=== PATIENT | male | born 2000 | race Caucasian/White ===

== ENCOUNTER 2023-08-05 16:55 | Observation (INO) ==
--- NOTE | 2023-08-05 17:08 | ED Triage Note ---
Date of Service August 05, 2023 Provider in Triage Author: Candace Betts History of Present Illness This patient was briefly evaluated while in triage. An abbreviated physical exam was performed. This patient is a 23-year-old Male who presents to the ED for evaluation of syncope. He states that he passed out in his bed. He states that he started vomiting while he was in bed then passed out and now can't see. Also having a lot of SOB and chest pain. Also has a lot of lower back pain. No previous similar symptoms. No recent injury or trauma. Was in [place] last weekend - flew down and back. Denies tobacco use or vaping. Physical Exam GENERAL: The patient appears in pain and nauseous and is holding his hands over his eyes saying that he is having trouble seeing the symptoms. Otherwise non- toxic and in no acute distress. HEENT: PERRLA. EOMI. No obvious scleral icterus. HEART: Regular rate and rhythm. LUNGS: Clear to auscultation. No accessory muscle use. ABDOMEN: Soft, diffusely tender to palpation. NEURO: Alert and oriented. No obvious neurological deficits on quick neuro exam. Initial orders for labs and / or imaging were placed and patient was placed in the waiting area until a bed is available. Please see further documentation for the full ED course. MDM / Impression Impression Impression: Vasovagal syncope, Dizziness, Leukocytosis Impression: Leukocytosis Qualifiers: Leukocytosis type: unspecified Qualified Code(s): D72.829 - Elevated white blood cell count, unspecified
[2023-08-05 17:43] LABS: Basophils # (auto) 0.03 K/uL (0.00-0.20); Basophils % (auto) 0.2 %; Eosinophils # (auto) 0.04 K/uL (0.00-0.50); Eosinophils % (auto) 0.3 %; Hematocrit (blood only) 46.5 % (42.0-52.0); Hemoglobin 16.8 g/dl (14.0-18.0); Immature Granulocytes # (auto) 0.06 K/uL (0.01-0.20); Immature Granulocytes % (auto) 0.4 %; Lymphocytes # (auto) 1.22 K/uL (1.20-3.40); Lymphocytes % (auto) 7.9 %; Mean Corpuscular Hemoglobin 29.4 pg (25.0-34.0); Mean Corpuscular Hgb Conc 36.1 g/dL (32.0-36.0); Mean Corpuscular Volume 81.3 fL (80.0-100.0); Monocytes # (auto) 0.54 K/uL (0.11-0.59); Monocytes % (auto) 3.5 %; Neutrophils # (auto) 13.61 K/uL (1.40-6.50); Neutrophils % (auto) 87.7 %; Platelet Count 266 K/uL (130-400); Red Blood Count 5.72 M/uL (4.70-6.10)
[2023-08-05] MEDS: OPTIRAY 320 125ml IV ONE (17:47)
[2023-08-05 17:57] LABS: Albumin Globulin Ratio 1.6 (0.9-2); Albumin Level 5.2 gm/dl (3.4-5.0); BUN Creatinine Ratio 13.9 (10-20); Bilirubin,Total 1.1 mg/dl (0.2-1.0); Calcium 9.6 mg/dl (8.6-10.3); Creatinine Clr Calc Pharmacy 94.4 ml/min; Est GFR (African American) 103.4 ml/min; Est GFR (Non-African American) 89.2 ml/min; Globulin 3.2 gm/dl (2.5-4.0); Magnesium 1.8 mg/dl (1.7-2.4); Potassium 4.1 mmol/L (3.5-5.1); Total Protein 8.4 gm/dl (6.0-8.3)
--- NOTE | 2023-08-05 18:01 | CT Scan Report ---
UNENHANCED CT OF THE BRAIN; CT ANGIOGRAM OF THE BRAIN; CT ANGIOGRAM OF THE NECK CLINICAL HISTORY: Headache. Vomiting. Syncope. COMPARISON STUDY: No priors. TECHNIQUE: Unenhanced axial CT scan of the brain is performed. Subsequently, following the IV adminis tration of 115 of Optiray 320, CT angiogram of the head and neck was performed from the aortic arch t o the vertex. Images are reviewed in the axial, sagittal, and coronal planes. 3-D MIPS images are cre ated and assessed. IV contrast was administered without complication. All measurements were calculate d based on NASCET criteria. A dose lowering technique was utilized adhering to the principles of ALA RA. CT DOSE: 3240.41 mGy.cm FINDINGS: Brain parenchyma: The brain parenchyma is normal in appearance. There is no hemorrhage, mass effect, or evidence of acute territorial ischemia by CT criteria. There is no evidence of enhancing mass lesi on on the angiogram phase images. The ventricles, sulci, and cisterns are normal in configuration. Gr ay-white matter differentiation is preserved. No extra-axial fluid collection is seen. Thoracic aorta: Visualized portions of the thoracic aorta are normal in caliber. The aortic arch demo nstrates standard 3-vessel anatomy. Right carotid arterial system: The right common carotid artery is widely patent, as are the right int ernal and external carotid arteries. Left carotid arterial system: The left common carotid artery is widely patent, as are the left information technology intern al and external carotid arteries. Vertebral arteries: The vertebral arteries are widely patent bilaterally and codominant. Subclavian arteries: Widely patent bilaterally. Intracranial vasculature: The internal carotid arteries are patent at the skull base, as are the ante rior and middle cerebral arteries bilaterally. The vertebrobasilar system and posterior cerebral dina rani are widely patent. The vertebral arteries are codominant. There is no aneurysm, high-grade steno sis, or focal vessel cut off seen throughout the intracranial circulation. Jugular veins: Patent bilaterally. Dural sinuses: Patent. Lung apices: Partially visualized upper lobe lung parenchyma appears clear. Soft tissues: The visualized pharyngeal soft tissues are normal in appearance noting angiographic pha se technique. The oropharyngeal airway appears widely patent. The salivary and thyroid glands are nor mal in appearance. No cervical lymphadenopathy is seen. Skeletal structures: The calvarium appears intact. The cervical spine is within normal limits. Orbits: The bony orbits are intact. Orbital contents are normal as visualized. Sinuses and mastoids: There is a 2.7 cm retention cyst in the right maxillary antrum. The remaining p aranasal sinuses are clear. The mastoid air cells are well pneumatized. IMPRESSION: 1. No acute intracranial abnormality. 2. Unremarkable CT angiogram of the brain. 3. Unremarkable CT angiogram of the neck. ACT 112: Negative or not required by law. Electronically signed by: Oumar Howe M.D. 08/05/2023 5:59 PM
[2023-08-05 18:02] LABS: Troponin I High Sensitivity 2.5 pg/ml (0-20)
[2023-08-05 18:10] LABS: Partial Thromboplastin Ratio 0.9; Partial Thromboplastin Time 24 Seconds (21-31); Prothrombin Time 11.1 Seconds (9.0-12.0)
[2023-08-05 18:11] LABS: Thyroid Stimulating Hormone 2.098 uIu/ml (0.300-4.500)
--- NOTE | 2023-08-05 19:12 | CT Scan Report ---
CT ANGIOGRAM OF THE CHEST; CT SCAN OF THE ABDOMEN AND PELVIS WITH IV CONTRAST CLINICAL HISTORY: Syncope. Vomiting. Visual changes. Weakness. COMPARISON STUDY: No priors. TECHNIQUE: Following the IV administration of 115 of Optiray 320, CT angiogram of the chest is perfor med from the upper abdomen to the thoracic inlet utilizing the pulmonary embolus protocol. Images are reviewed in the axial, sagittal, coronal planes. 3-D MIPS images are created and assessed. Subsequen tly, CT scan of the abdomen and pelvis was performed from the lung bases to the proximal femora. Imag es are reviewed in the axial, sagittal, and coronal planes. IV contrast was administered without comp lication. A dose lowering technique was utilized adhering to the principles of ALARA. FINDINGS: CHEST: Thyroid: Imaged portions of the thyroid gland are normal in size and attenuation. Thoracic aorta: The thoracic aorta is normal in caliber and demonstrates standard 3-vessel arch anato my. No dissection is seen. Pulmonary vasculature: The pulmonary trunk is normal in caliber. There are no filling defects identif ied in the main, lobar, or segmental pulmonary arteries to indicate pulmonary embolus. Heart: The heart is normal in size and without pericardial effusion. Lungs and pleural spaces: There is no airspace consolidation, pleural effusion, or pneumothorax. The trachea and central airways are clear. Mediastinum: There is no mediastinal lymphadenopathy. Fang: Clear. Axillae: There is no axillary lymphadenopathy. Bony thorax: No lytic or blastic lesions are identified. ABDOMEN AND PELVIS: Liver: The contrast-enhanced liver is normal in size, contour, and attenuation. There is no intrahepa tic or ductal dilatation. The hepatic veins and portal veins are patent. Gallbladder: Unremarkable. Spleen: Normal in size and attenuation. Pancreas: Unremarkable. Adrenal glands: Unremarkable. 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 The contrast enhanced renal moieties are normal i n size and without hydronephrosis. The renal moieties enhance symmetrically. A 4 mm nonobstructing ca lculus is seen on the right. Abdominal vasculature: The abdominal aorta is normal in course and caliber. Bowel: There is no bowel obstruction. The appendix is well-visualized and normal. Peritoneum: There is no intraperitoneal free air or abdominal ascites. Lymphadenopathy: None. Pelvic viscera: The bladder wall appears thickened. The prostate and seminal vesicles are normal as v isualized. There is trace free fluid in the pelvis. Skeletal structures: No lytic or blastic lesions are seen. IMPRESSION: 1. There is no evidence of pulmonary embolus in the main, lobar, or segmental pulmonary arteries. 2. The lungs are clear. 3. Trace free fluid in the pelvis is a nonspecific but abnormal finding. This may be reactive. Correl ate clinically. 4. The bladder wall appears thickened. Correlate with clinical findings and urinalysis. 5. 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 6. Right-sided nephrolithiasis. 7. Additional findings as above. ACT 112: Negative or not required by law. Electronically signed by: Oumar Howe M.D. 08/05/2023 7:11 PM
--- NOTE | 2023-08-05 19:14 | Emergency Department Note ---
Impression & Plan Vasovagal syncope, Dizziness, Leukocytosis ED Provider Note NAME: DEBBIE JADE AGE: 23 SEX: M : 2000 ARRIVES VIA: Walk-In INFORMANT: Patient ED PROVIDER(S): Buck Gonzalez DO CHIEF COMPLAINT: N/V/D and syncope HPI: Patient is a 23-year-old male who presents to the ER for nausea, vomiting, and diarrhea which started around 3:00 today. He vomited and got very lightheaded and diaphoretic and passed out while lying down. He notes he feels very dizzy. He does have some spasms in his back bilaterally. No trauma. No chest pain or shortness of breath. No dysuria, urgency, or frequency. No other exacerbating or remitting factors. Patient denies diabetes, hypertension, hyperlipidemia, CAD, history of sudden at a young age, and smoking. Patient notes that upon arrival he was having difficulty seeing as he was very dizzy. ADDITIONAL HISTORY OBTAINED: Per HPI Chronic Medical/Social Conditions Affecting Care: Per HPI PAST MEDICAL HISTORY:See Below PAST SURGICAL HISTORY:See Below FAMILY HISTORY:See Below SOCIAL HISTORY:See Below HOME MEDICATIONS:See Below ALLERGIES:See Below VITALS:See Below PHYSICAL EXAMINATION: GENERAL: Sitting up in bed, alert, uncomfortable, disheveled EYE EXAM: normal conjunctiva. PERRL and EOM's grossly intact. OROPHARYNX: Dry mucous membranes NECK: supple, no nuchal rigidity, no adenopathy, non-tender LUNGS: Clear to auscultation. Normal chest wall mechanics HEART: no murmurs, S1 normal and S2 normal ABDOMEN: abdomen soft, non-tender, normo-active bowel sounds, no masses, no rebound or guarding. BACK: Back is symmetrical on inspection and there is no deformity, no midline tenderness, no CVA tenderness. UPPER EXTREMITIES: upper extremities are grossly normal. LOWER EXTREMITIES: No pitting edema. NEURO EXAM: Normal sensorium, cranial nerves II-XII intact, normal speech, no weakness of arms, no weakness of legs. No drift. Finger to nose intact. Gross sensation intact. MEDICAL DECISION MAKING: Patient is a 23-year-old male who presents ER for above-stated complaint. IV was established blood work was obtained. Labs show leukocytosis of 15,000. No significant anemia. INR unremarkable. BMP on LFTs bilirubin was unremarkable. Troponin was negative. TSH was unremarkable. Patient was given 2 L of IV fluids followed by Plasma-Lyte, Zofran, Toradol, Reglan and did feel significantly better. While in the ER he did bradycardia down and became significant hypotensive in the 60s and almost passed out. This was prior to being placed on the monitor due to the protracted wait. It was discussed with the hospitalist this morning for further evaluation management treatment. EKG was unremarkable. Additional history obtained from nursing triage note that he walked into the wall as he was so dizzy and was having blurry vision. Consults/Care Managements Discussions: Per [facility] Triage Nursing notes reviewed. Limited review of prior medical records performed Vital Signs: reviewed and remarkable for tachy Differential diagnosis: Differential diagnosis includes etiologies such as vasovagal event, infection, hypoglycemia, electrolyte abnormalities, cardiac sources, intracerebral event, toxicologic, neurologic, as well as others were entertained. ER treatment provided: See below Diagnostics interpreted by me include EKG and cardiac monitoring as listed below: -Cardiac Monitoring: An order was placed for continuous cardiac monitoring. The monitor shows a rate of 90 with sinus rhythm. -ECG: Junctional rate 88 Right axis No PVCs QTc 433 Sinus rhythm rate of 88 Normal axis No PVCs QTc 438 -Laboratory studies:Interpreted by me as stated above in [facility] and shown below. Imaging studies: Xrays: As interpreted by me:none CTs show: CT of the chest per my preliminary interpretation showed no obvious large pneumothorax CT of the head, angio of the head and neck as well as angio of the chest was unremarkable Procedures:none Critical Care: None Past Med/Surg History Social History Smoking Status: Never smoker Preferred Language: [place] Feels Safe at Home: Yes Allergies Allergies Allergy/AdvReac Type Severity Reaction Status Date / Time codeine AdvReac Intermediate MODERATE Verified 08/05/23 20:59 GI UPSET Home Meds Home Medications Medication Instructions Recorded Confirmed dexamethasone 0.5 mg/5 mL oral 0.25 mg PO DIRECTED PRN MOUTH 08/05/23 08/05/23 elixir ULCERS Results & Data (ED) Vital Signs Vital Signs - 24 hr 08/05/23 17:05 08/05/23 20:15 08/05/23 20:32 Temperature 36.3 C L Temperature Source Temporal Artery Scan Pulse Rate 104 H 97 H Pulse Rate [Finger] 110 H Respiratory Rate 20 16 Respiratory Effort / Characteristics Non-Labored Respiratory Depth Normal Blood Pressure 130/65 Blood Pressure [Left Arm] 67/39 L Blood Pressure Mean 86 Blood Pressure Mean [Left Arm] 48 Blood Pressure Position [Left Arm] Lying Pulse Oximetry 100 95 Oxygen Delivery Method Room Air Sepsis Recent Fever Within 48 Hours No Sepsis New/Unexplained Change in Mental Status N/A Sepsis Action Taken by Nursing No Action Required 08/05/23 21:00 08/05/23 21:12 08/05/23 23:40 Temperature Temperature Source Pulse Rate Pulse Rate [Finger] 85 95 H 86 Respiratory Rate 18 18 18 Respiratory Effort / Characteristics Respiratory Depth Blood Pressure Blood Pressure [Left Arm] 121/71 121/71 117/58 L Blood Pressure Mean Blood Pressure Mean [Left Arm] 87 87 77 Blood Pressure Position [Left Arm] Pulse Oximetry 99 100 99 Oxygen Delivery Method Room Air Room Air Room Air Sepsis Recent Fever Within 48 Hours Sepsis New/Unexplained Change in Mental Status Sepsis Action Taken by Nursing Laboratory Data 08/05/23 17:22 08/05/23 17:22 Lab Results 08/05/23 Range/Units 17:22 WBC 15.50 H (4.8-10.8) K/ul RBC 5.72 (4.70-6.10) M/uL Hgb 16.8 (14.0-18.0) g/dl Hct 46.5 (42.0-52.0) % MCV 81.3 (80.0-100.0) fL MCH 29.4 (25.0-34.0) pg MCHC 36.1 H (32.0-36.0) g/dL RDW Std Deviation 35.0 L (36.4-46.3) fL RDW Coeff of Mari 12.0 (11.5-14.5) % Plt Count 266 (130-400) K/uL MPV 10.0 (9.4-12.4) fL Immature Gran % (Auto) 0.4 % Neut % (Auto) 87.7 % Lymph % (Auto) 7.9 % Kay % (Auto) 3.5 % Eos % (Auto) 0.3 % Baso % (Auto) 0.2 % Neut # (Auto) 13.61 H (1.40-6.50) K/uL Lymph # (Auto) 1.22 (1.20-3.40) K/uL Kay # (Auto) 0.54 (0.11-0.59) K/uL Eos # (Auto) 0.04 (0.00-0.50) K/uL Baso # (Auto) 0.03 (0.00-0.20) K/uL Immature Gran # (Auto) 0.06 (0.01-0.20) K/uL PT 11.1 (9.0-12.0) Seconds INR 1.0 (0.9-1.1) APTT 24 (21-31) Seconds PTT Ratio 0.9 Sodium 139 (136-145) mmol/L Potassium 4.1 (3.5-5.1) mmol/L Chloride 105 (98-107) mmol/L Carbon Dioxide 22 (21-32) mmol/L Anion Gap 12 H (3-11) BUN 16 (6-23) mg/dl Creatinine 1.15 (0.6-1.4) mg/dl Est Cr Clr Drug Dosing 94.4 ml/min Est GFR ( Amer) 103.4 ml/min Est GFR (Non-Af Amer) 89.2 ml/min BUN/Creatinine Ratio 13.9 (10-20) Glucose 131 H (70-99(Fasting)) mg/dl Calcium 9.6 (8.6-10.3) mg/dl Magnesium 1.8 (1.7-2.4) mg/dl Total Bilirubin 1.1 H (0.2-1.0) mg/dl AST 23 (13-39) U/L ALT 12 (7-52) U/L Alkaline Phosphatase 94 (34-104) U/L Troponin I High Sens 2.5 (0-20) pg/ml Total Protein 8.4 H (6.0-8.3) gm/dl Albumin 5.2 H (3.4-5.0) gm/dl Globulin 3.2 (2.5-4.0) gm/dl Albumin/Globulin Ratio 1.6 (0.9-2) TSH 2.098 (0.300-4.500) uIu/ml Administered Medications Discontinued Medications Sodium Chloride (Nss) 1,000 mls @ 999 mls/hr IV .Q1H1M ONE Stop: 08/05/23 18:08 Last Infusion: 08/05/23 22:28 Dose: Infused Documented By: Admin: 08/05/23 21:14 Dose: 999 mls/hr Documented By: STEPHANIE Sodium Chloride (Nss) 1,000 mls @ 999 mls/hr IV .Q1H1M ANGEL Stop: 08/05/23 21:12 Last Infusion: 08/05/23 21:13 Dose: Infused Documented By: Admin: 08/05/23 20:59 Dose: 999 mls/hr Documented By: STEPHANIE Parenteral Electrolytes (Plasma-Lyte A Ph 7.4) 2,000 mls @ 999 mls/hr IV .Q2H1M ONE Stop: 08/05/23 23:15 Last Admin: 08/05/23 22:42 Dose: 999 mls/hr Documented By: STEPHANIE Ioversol (Optiray 320 125ml) 115 ml IV ONCE ONE Stop: 08/05/23 17:47 Last Admin: 08/05/23 17:47 Dose: 115 ml Documented By: MITCHEL Ketorolac Tromethamine (Ketorolac Tromethamine 15 Mg/Ml Vial) 15 mg IV NOW ONE Stop: 08/05/23 19:12 Last Admin: 08/05/23 20:59 Dose: 15 mg Documented By: STEPHANIE Metoclopramide HCl (Metoclopramide Hcl Inj 5 Mg/Ml 2 Ml Vial) 10 mg IV NOW STA Stop: 08/05/23 19:12 Last Admin: 08/05/23 21:02 Dose: Not Given Documented By: STEPHANIE Ondansetron HCl (Ondansetron Inj 2 Mg/Ml 2 Ml Vial) 4 mg IV NOW STA Stop: 08/05/23 17:09 Last Admin: 08/05/23 21:14 Dose: 4 mg Documented By: STEPHANIE Ondansetron HCl (Ondansetron Inj 2 Mg/Ml 2 Ml Vial) Confirm Administered Dose 4 mg .ROUTE .STK-MED ONE Stop: 08/05/23 21:10 Last Admin: 08/05/23 21:14 Dose: Not Given Documented By: STEPHANIE Imaging Data Radiologist's Impression: Abdomen/Pelvis CT 08/05/23 17:08 CT ANGIOGRAM OF THE CHEST; CT SCAN OF THE ABDOMEN AND PELVIS WITH IV CONTRAST CLINICAL HISTORY: Syncope. Vomiting. Visual changes. Weakness. COMPARISON STUDY: No priors. TECHNIQUE: Following the IV administration of 115 of Optiray 320, CT angiogram of the chest is performed from the upper abdomen to the thoracic inlet utilizing the pulmonary embolus protocol. Images are reviewed in the axial, sagittal, coronal planes. 3-D MIPS images are created and assessed. Subsequently, CT scan of the abdomen and pelvis was performed from the lung bases to the proximal femora. Images are reviewed in the axial, sagittal, and coronal planes. IV contrast was administered without complication. A dose lowering technique was utilized adhering to the principles of ALARA. FINDINGS: CHEST: Thyroid: Imaged portions of the thyroid gland are normal in size and attenuation. Thoracic aorta: The thoracic aorta is normal in caliber and demonstrates standard 3-vessel arch anatomy. No dissection is seen. Pulmonary vasculature: The pulmonary trunk is normal in caliber. There are no filling defects identified in the main, lobar, or segmental pulmonary arteries to indicate pulmonary embolus. Heart: The heart is normal in size and without pericardial effusion. Lungs and pleural spaces: There is no airspace consolidation, pleural effusion, or pneumothorax. The trachea and central airways are clear. Mediastinum: There is no mediastinal lymphadenopathy. Fang: Clear. Axillae: There is no axillary lymphadenopathy. Bony thorax: No lytic or blastic lesions are identified. ABDOMEN AND PELVIS: Liver: The contrast-enhanced liver is normal in size, contour, and attenuation. There is no intrahepatic or ductal dilatation. The hepatic veins and portal veins are patent. Gallbladder: Unremarkable. Spleen: Normal in size and attenuation. Pancreas: Unremarkable. Adrenal glands: Unremarkable. 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 The contrast enhanced renal moieties are normal in size and without hydronephrosis. The renal moieties enhance symmetrically. A 4 mm nonobstructing calculus is seen on the right. Abdominal vasculature: The abdominal aorta is normal in course and caliber. Bowel: There is no bowel obstruction. The appendix is well-visualized and normal. Peritoneum: There is no intraperitoneal free air or abdominal ascites. Lymphadenopathy: None. Pelvic viscera: The bladder wall appears thickened. The prostate and seminal vesicles are normal as visualized. There is trace free fluid in the pelvis. Skeletal structures: No lytic or blastic lesions are seen. IMPRESSION: 1. There is no evidence of pulmonary embolus in the main, lobar, or segmental pulmonary arteries. 2. The lungs are clear. 3. Trace free fluid in the pelvis is a nonspecific but abnormal finding. This may be reactive. Correlate clinically. 4. The bladder wall appears thickened. Correlate with clinical findings and urinalysis. 5. 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 6. Right-sided nephrolithiasis. 7. Additional findings as above. ACT 112: Negative or not required by law. Electronically signed by: Oumar Howe M.D. 08/05/2023 7:11 PM Chest CTA 08/05/23 17:08 CT ANGIOGRAM OF THE CHEST; CT SCAN OF THE ABDOMEN AND PELVIS WITH IV CONTRAST CLINICAL HISTORY: Syncope. Vomiting. Visual changes. Weakness. COMPARISON STUDY: No priors. TECHNIQUE: Following the IV administration of 115 of Optiray 320, CT angiogram of the chest is performed from the upper abdomen to the thoracic inlet utilizing the pulmonary embolus protocol. Images are reviewed in the axial, sagittal, coronal planes. 3-D MIPS images are created and assessed. Subsequently, CT scan of the abdomen and pelvis was performed from the lung bases to the proximal femora. Images are reviewed in the axial, sagittal, and coronal planes. IV contrast was administered without complication. A dose lowering technique was utilized adhering to the principles of ALARA. FINDINGS: CHEST: Thyroid: Imaged portions of the thyroid gland are normal in size and attenuation. Thoracic aorta: The thoracic aorta is normal in caliber and demonstrates standard 3-vessel arch anatomy. No dissection is seen. Pulmonary vasculature: The pulmonary trunk is normal in caliber. There are no filling defects identified in the main, lobar, or segmental pulmonary arteries to indicate pulmonary embolus. Heart: The heart is normal in size and without pericardial effusion. Lungs and pleural spaces: There is no airspace consolidation, pleural effusion, or pneumothorax. The trachea and central airways are clear. Mediastinum: There is no mediastinal lymphadenopathy. Fang: Clear. Axillae: There is no axillary lymphadenopathy. Bony thorax: No lytic or blastic lesions are identified. ABDOMEN AND PELVIS: Liver: The contrast-enhanced liver is normal in size, contour, and attenuation. There is no intrahepatic or ductal dilatation. The hepatic veins and portal veins are patent. Gallbladder: Unremarkable. Spleen: Normal in size and attenuation. Pancreas: Unremarkable. Adrenal glands: Unremarkable. 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 The contrast enhanced renal moieties are normal in size and without hydronephrosis. The renal moieties enhance symmetrically. A 4 mm nonobstructing calculus is seen on the right. Abdominal vasculature: The abdominal aorta is normal in course and caliber. Bowel: There is no bowel obstruction. The appendix is well-visualized and normal. Peritoneum: There is no intraperitoneal free air or abdominal ascites. Lymphadenopathy: None. Pelvic viscera: The bladder wall appears thickened. The prostate and seminal vesicles are normal as visualized. There is trace free fluid in the pelvis. Skeletal structures: No lytic or blastic lesions are seen. IMPRESSION: 1. There is no evidence of pulmonary embolus in the main, lobar, or segmental pulmonary arteries. 2. The lungs are clear. 3. Trace free fluid in the pelvis is a nonspecific but abnormal finding. This may be reactive. Correlate clinically. 4. The bladder wall appears thickened. Correlate with clinical findings and urinalysis. 5. 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 6. Right-sided nephrolithiasis. 7. Additional findings as above. ACT 112: Negative or not required by law. Electronically signed by: Oumar Howe M.D. 08/05/2023 7:[address] 08/05/23 17:[address] OF THE BRAIN; CT ANGIOGRAM OF THE BRAIN; CT ANGIOGRAM OF THE NECK CLINICAL HISTORY: Headache. Vomiting. Syncope. COMPARISON STUDY: No priors. TECHNIQUE: Unenhanced axial CT scan of the brain is performed. Subsequently, following the IV administration of 115 of Optiray 320, CT angiogram of the head and neck was performed from the aortic arch to the vertex. Images are reviewed in the axial, sagittal, and coronal planes. 3-D MIPS images are created and assessed. IV contrast was administered without complication. All measurements were calculated based on NASCET criteria. A dose lowering technique was utilized adhering to the principles of ALARA. CT DOSE: 3240.41 mGy.cm FINDINGS: Brain parenchyma: The brain parenchyma is normal in appearance. There is no hemorrhage, mass effect, or evidence of acute territorial ischemia by CT criteria. There is no evidence of enhancing mass lesion on the angiogram phase images. The ventricles, sulci, and cisterns are normal in configuration. Rebollar- white matter differentiation is preserved. No extra-axial fluid collection is seen. Thoracic aorta: Visualized portions of the thoracic aorta are normal in caliber. The aortic arch demonstrates standard 3-vessel anatomy. Right carotid arterial system: The right common carotid artery is widely patent, as are the right internal and external carotid arteries. Left carotid arterial system: The left common carotid artery is widely patent, as are the left internal and external carotid arteries. Vertebral arteries: The vertebral arteries are widely patent bilaterally and codominant. Subclavian arteries: Widely patent bilaterally. Intracranial vasculature: The internal carotid arteries are patent at the skull base, as are the anterior and middle cerebral arteries bilaterally. The vertebrobasilar system and posterior cerebral arteries are widely patent. The vertebral arteries are codominant. There is no aneurysm, high-grade stenosis, or focal vessel cut off seen throughout the intracranial circulation. Jugular veins: Patent bilaterally. Dural sinuses: Patent. Lung apices: Partially visualized upper lobe lung parenchyma appears clear. Soft tissues: The visualized pharyngeal soft tissues are normal in appearance noting angiographic phase technique. The oropharyngeal airway appears widely patent. The salivary and thyroid glands are normal in appearance. No cervical lymphadenopathy is seen. Skeletal structures: The calvarium appears intact. The cervical spine is within normal limits. Orbits: The bony orbits are intact. Orbital contents are normal as visualized. Sinuses and mastoids: There is a 2.7 cm retention cyst in the right maxillary antrum. The remaining paranasal sinuses are clear. The mastoid air cells are well pneumatized. IMPRESSION: 1. No acute intracranial abnormality. 2. Unremarkable CT angiogram of the brain. 3. Unremarkable CT angiogram of the neck. ACT 112: Negative or not required by law. Electronically signed by: Oumar Howe M.D. 08/05/2023 5:59 PM Head CTA 08/05/23 17:[address] OF THE BRAIN; CT ANGIOGRAM OF THE BRAIN; CT ANGIOGRAM OF THE NECK CLINICAL HISTORY: Headache. Vomiting. Syncope. COMPARISON STUDY: No priors. TECHNIQUE: Unenhanced axial CT scan of the brain is performed. Subsequently, following the IV administration of 115 of Optiray 320, CT angiogram of the head and neck was performed from the aortic arch to the vertex. Images are reviewed in the axial, sagittal, and coronal planes. 3-D MIPS images are created and assessed. IV contrast was administered without complication. All measurements were calculated based on NASCET criteria. A dose lowering technique was utilized adhering to the principles of ALARA. CT DOSE: 3240.41 mGy.cm FINDINGS: Brain parenchyma: The brain parenchyma is normal in appearance. There is no hemorrhage, mass effect, or evidence of acute territorial ischemia by CT criteria. There is no evidence of enhancing mass lesion on the angiogram phase images. The ventricles, sulci, and cisterns are normal in configuration. Rebollar- white matter differentiation is preserved. No extra-axial fluid collection is seen. Thoracic aorta: Visualized portions of the thoracic aorta are normal in caliber. The aortic arch demonstrates standard 3-vessel anatomy. Right carotid arterial system: The right common carotid artery is widely patent, as are the right internal and external carotid arteries. Left carotid arterial system: The left common carotid artery is widely patent, as are the left internal and external carotid arteries. Vertebral arteries: The vertebral arteries are widely patent bilaterally and codominant. Subclavian arteries: Widely patent bilaterally. Intracranial vasculature: The internal carotid arteries are patent at the skull base, as are the anterior and middle cerebral arteries bilaterally. The vertebrobasilar system and posterior cerebral arteries are widely patent. The vertebral arteries are codominant. There is no aneurysm, high-grade stenosis, or focal vessel cut off seen throughout the intracranial circulation. Jugular veins: Patent bilaterally. Dural sinuses: Patent. Lung apices: Partially visualized upper lobe lung parenchyma appears clear. Soft tissues: The visualized pharyngeal soft tissues are normal in appearance noting angiographic phase technique. The oropharyngeal airway appears widely patent. The salivary and thyroid glands are normal in appearance. No cervical lymphadenopathy is seen. Skeletal structures: The calvarium appears intact. The cervical spine is within normal limits. Orbits: The bony orbits are intact. Orbital contents are normal as visualized. Sinuses and mastoids: There is a 2.7 cm retention cyst in the right maxillary antrum. The remaining paranasal sinuses are clear. The mastoid air cells are well pneumatized. IMPRESSION: 1. No acute intracranial abnormality. 2. Unremarkable CT angiogram of the brain. 3. Unremarkable CT angiogram of the neck. ACT 112: Negative or not required by law. Electronically signed by: Oumar Howe M.D. 08/05/2023 5:59 PM Neck CTA 08/05/23 17:[address] OF THE BRAIN; CT ANGIOGRAM OF THE BRAIN; CT ANGIOGRAM OF THE NECK CLINICAL HISTORY: Headache. Vomiting. Syncope. COMPARISON STUDY: No priors. TECHNIQUE: Unenhanced axial CT scan of the brain is performed. Subsequently, following the IV administration of 115 of Optiray 320, CT angiogram of the head and neck was performed from the aortic arch to the vertex. Images are reviewed in the axial, sagittal, and coronal planes. 3-D MIPS images are created and assessed. IV contrast was administered without complication. All measurements were calculated based on NASCET criteria. A dose lowering technique was utilized adhering to the principles of ALARA. CT DOSE: 3240.41 mGy.cm FINDINGS: Brain parenchyma: The brain parenchyma is normal in appearance. There is no hemorrhage, mass effect, or evidence of acute territorial ischemia by CT criteria. There is no evidence of enhancing mass lesion on the angiogram phase images. The ventricles, sulci, and cisterns are normal in configuration. Rebollar- white matter differentiation is preserved. No extra-axial fluid collection is seen. Thoracic aorta: Visualized portions of the thoracic aorta are normal in caliber. The aortic arch demonstrates standard 3-vessel anatomy. Right carotid arterial system: The right common carotid artery is widely patent, as are the right internal and external carotid arteries. Left carotid arterial system: The left common carotid artery is widely patent, as are the left internal and external carotid arteries. Vertebral arteries: The vertebral arteries are widely patent bilaterally and codominant. Subclavian arteries: Widely patent bilaterally. Intracranial vasculature: The internal carotid arteries are patent at the skull base, as are the anterior and middle cerebral arteries bilaterally. The vertebrobasilar system and posterior cerebral arteries are widely patent. The vertebral arteries are codominant. There is no aneurysm, high-grade stenosis, or focal vessel cut off seen throughout the intracranial circulation. Jugular veins: Patent bilaterally. Dural sinuses: Patent. Lung apices: Partially visualized upper lobe lung parenchyma appears clear. Soft tissues: The visualized pharyngeal soft tissues are normal in appearance noting angiographic phase technique. The oropharyngeal airway appears widely patent. The salivary and thyroid glands are normal in appearance. No cervical lymphadenopathy is seen. Skeletal structures: The calvarium appears intact. The cervical spine is within normal limits. Orbits: The bony orbits are intact. Orbital contents are normal as visualized. Sinuses and mastoids: There is a 2.7 cm retention cyst in the right maxillary antrum. The remaining paranasal sinuses are clear. The mastoid air cells are well pneumatized. IMPRESSION: 1. No acute intracranial abnormality. 2. Unremarkable CT angiogram of the brain. 3. Unremarkable CT angiogram of the neck. ACT 112: Negative or not required by law. Electronically signed by: Oumar Howe M.D. 08/05/2023 5:59 PM Discharge Plan Visit Data Chief Complaint: Syncope (Near Syncope) Stated Complaint: FAINTED, SHAKING, NUMBNESS IN FEET ED Provider: Buck Gonzalez Discharge Problem: Vasovagal syncope, Dizziness, Leukocytosis Forms Stand Alone Forms: [facility] [employer] Prescriptions Prescriptions: No Action dexamethasone 0.5 mg/5 mL Elixir 0.25 mg PO DIRECTED PRN (Reason: MOUTH ULCERS) Referrals Referrals: PCP,NO [Physician] - Discharge Problem: Leukocytosis Qualifiers: Leukocytosis type: unspecified Qualified Code(s): D72.829 - Elevated white blood cell count, unspecified
[2023-08-05] MEDS: SODIUM CHLORIDE 0.9% 1,000 ML IV SCH (20:59)
[2023-08-05] MEDS: KETOROLAC TROMETHAMINE 15 MG/ML VIAL IV ONE (20:59)
[2023-08-05] MEDS: METOCLOPRAMIDE HCL INJ 5 MG/ML 2 ML VIAL IV STA (21:02)
[2023-08-05] MEDS: SODIUM CHLORIDE 0.9% 1,000 ML IV ONE (21:14)
[2023-08-05] MEDS: ONDANSETRON INJ 2 MG/ML 2 ML VIAL IV STA (21:14)
[2023-08-05] MEDS: ONDANSETRON INJ 2 MG/ML 2 ML VIAL ONE (21:14)
[2023-08-05] MEDS: PLASMA-LYTE A 2,000 ML IV ONE (22:42)
--- NOTE | 2023-08-05 23:58 | History & Physical Report ---
Date of Service August 05, 2023 Assessment & Plan (1) Syncope: Plan: 23yo male with acute onset nausea/vomiting/diarrhea and abdominal pain, hypotensive in the ER with multiple syncopal events. Suspect secondary to acute volume loss from vomiting and diarrhea. Patient improving after aggressive IVF resuscitation in the ER. -Admit to medical with telemetry -Continue IVF - LR at 125mL/hr x 2L -Tylenol PRN -Zofran PRN (2) Nausea vomiting and diarrhea: Plan: Etiology unclear. Possibly food-borne illness. CT of the abdomen with no acute issues -Stool PCR ordered -Continue IVF as above -Zofran and Tylenol PRN (3) Horseshoe kidney with renal calculus: Plan: Incidentally noted. Non-obstructing stone in the right, 4mm. Patient did have flank pain initially, improving now. UA suggests dehydration, no infection F/E/N - LR at 125mL/hr x 2L, electrolytes WNL, Regular diet as tolerated Ppx - Low risk for DVT, encourage ambulation Code - Full Dispo - Admit to medical with telemetry History of Present Illness Chief Complaint: syncope Primary Care Provider: Milton Vasquez MD Edward Metzger is a 23yo male presenting with dizziness and syncope. Patient was in class this AM when he developed nausea and cramping across his low back. He then got a hot flash and passed out. He then developed abdominal cramping, nausea with 8-9 episodes of non-bloody/non-bilious emesis and 2 episodes of watery diarrhea. In the ER waiting room he had several episodes of syncope - he reports blurry vision and difficulty breathing - blood pressure measured in the 50's. He denies fever, chills, chest pain, cough or SOB. No urinary symptoms. Patient was recently in [place] and ate oysters. He also ate steak last night and reports that it possibly tasted a little off. Nobody else became ill. Patient reports feeling better overall. Still with mild lumbar pain. In the ER patient hypotensive - BP of 67/39 ER Course: NSS x 2L Plasmalyte x 2L Toradol 15mg IV Zofran 4mg IV Allergies Allergy/AdvReac Type Severity Reaction Status Date / Time codeine AdvReac Intermediate MODERATE Verified 08/05/23 20:59 GI UPSET Home Medications Medication Instructions Recorded Confirmed Type dexamethasone 0.5 mg/5 mL oral 0.25 mg PO DIRECTED PRN MOUTH 08/05/23 08/05/23 History elixir ULCERS Past Med/Surg History Medical History (Updated 08/06/23 @ 04:05 by Omayra Trimble DO) Horseshoe kidney with renal calculus Social History Smoking Status: Never smoker Hx Alcohol Use: No Hx Substance Use: No Preferred Language: Portuguese Communication Ability: Effective Vascular Ultrasound Technician Required: No Beliefs That Will Affect Care: None Current Living Situation: Family Other Information That Helps Us Care for You: No Feels Safe at Home: Yes Safety Concerns: Feels Safe At This Time Assistive Devices: None Review of Systems Review of Systems: All systems reviewed & are unremarkable except as noted in HPI & below Physical Exam Physical Exam: General: patient resting comfortably, NAD, non-toxic in appearance, AA&O x 4 Skin: warm, dry, intact, no rashes or lesions HEENT: NC/AT, PERRL, EOMI, anicteric sclera, conjunctiva without injection, external ear normal to inspection and nontender, nares patent, moist mucus membranes, dentition intact, no oropharyngeal lesions, neck supple, trachea midline, no LAD, no thyromegaly, no JVD Heart: +S1/S2, regular, no m/r/g Lungs: equal air entry bilaterally, no rales/rhonchi/wheezes Abd: +BS, soft, NT/ND, no masses/organomegaly/ascites, no CVA tenderness Ext: warm, 2+ pulses in UE/LE bilaterally, no clubbing/cyanosis or edema Neuro: nonfocal, patient AA&O x 4, speech intact, no facial droop, moving all extremities on command with equal strength 5/5 Results & Data Results & Data Vital Signs (Past 12 Hours) Vital Signs Temp Pulse Pulse Resp BP BP Pulse Ox 08/05/23 23:40 86 18 117/58 L 99 08/05/23 21:12 95 H 18 121/71 100 08/05/23 21:00 85 18 121/71 99 08/05/23 20:32 97 H 08/05/23 20:15 110 H 16 67/39 L 95 08/05/23 17:05 36.3 C L 104 H 20 130/65 100 O2 Del Method 08/05/23 23:40 Room Air 08/05/23 21:12 Room Air 08/05/23 21:00 Room Air 08/05/23 20:32 08/05/23 20:15 Room Air 08/05/23 17:05 Laboratory Results Laboratory Results WBC 15.50 K/ul (4.8-10.8) H 08/05/23 17:22 RBC 5.72 M/uL (4.70-6.10) 08/05/23 17:22 Hgb 16.8 g/dl (14.0-18.0) 08/05/23 17:22 Hct 46.5 % (42.0-52.0) 08/05/23 17:22 MCV 81.3 fL (80.0-100.0) 08/05/23 17:22 MCH 29.4 pg (25.0-34.0) 08/05/23 17:22 MCHC 36.1 g/dL (32.0-36.0) H 08/05/23 17:22 RDW Std Deviation 35.0 fL (36.4-46.3) L 08/05/23 17:22 RDW Coeff of Mari 12.0 % (11.5-14.5) 08/05/23 17:22 Plt Count 266 K/uL (130-400) 08/05/23 17:22 MPV 10.0 fL (9.4-12.4) 08/05/23 17:22 Immature Gran % (Auto) 0.4 % 08/05/23 17:22 Neut % (Auto) 87.7 % 08/05/23 17:22 Lymph % (Auto) 7.9 % 08/05/23 17:22 [place] % (Auto) 3.5 % 08/05/23 17:22 Eos % (Auto) 0.3 % 08/05/23 17:22 Baso % (Auto) 0.2 % 08/05/23 17:22 Neut # (Auto) 13.61 K/uL (1.40-6.50) H 08/05/23 17:22 Lymph # (Auto) 1.22 K/uL (1.20-3.40) 08/05/23 17:22 [place] # (Auto) 0.54 K/uL (0.11-0.59) 08/05/23 17:22 Eos # (Auto) 0.04 K/uL (0.00-0.50) 08/05/23 17:22 Baso # (Auto) 0.03 K/uL (0.00-0.20) 08/05/23 17:22 Immature Gran # (Auto) 0.06 K/uL (0.01-0.20) 08/05/23 17:22 PT 11.1 Seconds (9.0-12.0) 08/05/23 17:22 INR 1.0 (0.9-1.1) 08/05/23 17:22 APTT 24 Seconds (21-31) 08/05/23 17:22 PTT Ratio 0.9 08/05/23 17:22 Sodium 139 mmol/L (136-145) 08/05/23 17:22 Potassium 4.1 mmol/L (3.5-5.1) 08/05/23 17:22 Chloride 105 mmol/L (98-107) 08/05/23 17:22 Carbon Dioxide 22 mmol/L (21-32) 08/05/23 17:22 Anion Gap 12 (3-11) H 08/05/23 17:22 BUN 16 mg/dl (6-23) 08/05/23 17:22 Creatinine 1.15 mg/dl (0.6-1.4) 08/05/23 17:22 Est Cr Clr Drug Dosing 94.4 ml/min 08/05/23 17:22 Est GFR ( Amer) 103.4 ml/min 08/05/23 17:22 Est GFR (Non-Af Amer) 89.2 ml/min 08/05/23 17:22 BUN/Creatinine Ratio 13.9 (10-20) 08/05/23 17:22 Glucose 131 mg/dl (70-99(Fasting)) H 08/05/23 17:22 Calcium 9.6 mg/dl (8.6-10.3) 08/05/23 17:22 Magnesium 1.8 mg/dl (1.7-2.4) 08/05/23 17:22 Total Bilirubin 1.1 mg/dl (0.2-1.0) H 08/05/23 17:22 AST 23 U/L (13-39) 08/05/23 17:22 ALT 12 U/L (7-52) 08/05/23 17:22 Alkaline Phosphatase 94 U/L (34-104) 08/05/23 17:22 Troponin I High Sens 2.5 pg/ml (0-20) 08/05/23 17:22 Total Protein 8.4 gm/dl (6.0-8.3) H 08/05/23 17:22 Albumin 5.2 gm/dl (3.4-5.0) H 08/05/23 17:22 Globulin 3.2 gm/dl (2.5-4.0) 08/05/23 17:22 Albumin/Globulin Ratio 1.6 (0.9-2) 08/05/23 17:22 TSH 2.098 uIu/ml (0.300-4.500) 08/05/23 17:22 Urine Color Yellow 08/06/23 00:10 Urine Appearance Clear (Clear) 08/06/23 00:10 Urine pH 6.0 (4.5-7.5) 08/06/23 00:10 Ur Specific [place] > 1.045 (1.000-1.030) H 08/06/23 00:10 Urine Protein Negative (Negative) 08/06/23 00:10 Urine Glucose (UA) Negative (Negative) 08/06/23 00:10 Urine Ketones 1+ (Negative) H 08/06/23 00:10 Urine Blood Negative (Negative) 08/06/23 00:10 Urine Nitrite Negative (Negative) 08/06/23 00:10 Urine Bilirubin Negative (Negative) 08/06/23 00:10 Urine Urobilinogen Negative (Negative) 08/06/23 00:10 Ur Leukocyte Esterase Negative (Negative) 08/06/23 00:10 Impressions Abdomen/Pelvis CT 08/05/23 17:08 CT ANGIOGRAM OF THE CHEST; CT SCAN OF THE ABDOMEN AND PELVIS WITH IV CONTRAST CLINICAL HISTORY: Syncope. Vomiting. Visual changes. Weakness. COMPARISON STUDY: No priors. TECHNIQUE: Following the IV administration of 115 of Optiray 320, CT angiogram of the chest is performed from the upper abdomen to the thoracic inlet utilizing the pulmonary embolus protocol. Images are reviewed in the axial, sagittal, coronal planes. 3-D MIPS images are created and assessed. Subsequently, CT scan of the abdomen and pelvis was performed from the lung bases to the proximal femora. Images are reviewed in the axial, sagittal, and coronal planes. IV contrast was administered without complication. A dose lowering technique was utilized adhering to the principles of ALARA. FINDINGS: CHEST: Thyroid: Imaged portions of the thyroid gland are normal in size and attenuation . Thoracic aorta: The thoracic aorta is normal in caliber and demonstrates standard 3-vessel arch anatomy. No dissection is seen. Pulmonary vasculature: The pulmonary trunk is normal in caliber. There are no filling defects identified in the main, lobar, or segmental pulmonary arteries to indicate pulmonary embolus. Heart: The heart is normal in size and without pericardial effusion. Lungs and pleural spaces: There is no airspace consolidation, pleural effusion, or pneumothorax. The trachea and central airways are clear. Mediastinum: There is no mediastinal lymphadenopathy. Fang: Clear. Axillae: There is no axillary lymphadenopathy. Bony thorax: No lytic or blastic lesions are identified. ABDOMEN AND PELVIS: Liver: The contrast-enhanced liver is normal in size, contour, and attenuation. There is no intrahepatic or ductal dilatation. The hepatic veins and portal veins are patent. Gallbladder: Unremarkable. Spleen: Normal in size and attenuation. Pancreas: Unremarkable. Adrenal glands: Unremarkable. 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 The contrast enhanced renal moieties are normal in size and without hydronephrosis. The renal moieties enhance symmetrically. A 4 mm nonobstructing calculus is seen on the right. Abdominal vasculature: The abdominal aorta is normal in course and caliber. Bowel: There is no bowel obstruction. The appendix is well-visualized and normal. Peritoneum: There is no intraperitoneal free air or abdominal ascites. Lymphadenopathy: None. Pelvic viscera: The bladder wall appears thickened. The prostate and seminal vesicles are normal as visualized. There is trace free fluid in the pelvis. Skeletal structures: No lytic or blastic lesions are seen. IMPRESSION: 1. There is no evidence of pulmonary embolus in the main, lobar, or segmental pulmonary arteries. 2. The lungs are clear. 3. Trace free fluid in the pelvis is a nonspecific but abnormal finding. This may be reactive. Correlate clinically. 4. The bladder wall appears thickened. Correlate with clinical findings and urinalysis. 5. 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 6. Right-sided nephrolithiasis. 7. Additional findings as above. ACT 112: Negative or not required by law. Electronically signed by: Oumar Howe M.D. 08/05/2023 7:11 PM Chest CTA 08/05/23 17:08 CT ANGIOGRAM OF THE CHEST; CT SCAN OF THE ABDOMEN AND PELVIS WITH IV CONTRAST CLINICAL HISTORY: Syncope. Vomiting. Visual changes. Weakness. COMPARISON STUDY: No priors. TECHNIQUE: Following the IV administration of 115 of Optiray 320, CT angiogram of the chest is performed from the upper abdomen to the thoracic inlet utilizing the pulmonary embolus protocol. Images are reviewed in the axial, sagittal, coronal planes. 3-D MIPS images are created and assessed. Subsequently, CT scan of the abdomen and pelvis was performed from the lung bases to the proximal femora. Images are reviewed in the axial, sagittal, and coronal planes. IV contrast was administered without complication. A dose lowering technique was utilized adhering to the principles of ALARA. FINDINGS: CHEST: Thyroid: Imaged portions of the thyroid gland are normal in size and attenuation. Thoracic aorta: The thoracic aorta is normal in caliber and demonstrates standard 3-vessel arch anatomy. No dissection is seen. Pulmonary vasculature: The pulmonary trunk is normal in caliber. There are no filling defects identified in the main, lobar, or segmental pulmonary arteries to indicate pulmonary embolus. Heart: The heart is normal in size and without pericardial effusion. Lungs and pleural spaces: There is no airspace consolidation, pleural effusion, or pneumothorax. The trachea and central airways are clear. Mediastinum: There is no mediastinal lymphadenopathy. Fang: Clear. Axillae: There is no axillary lymphadenopathy. Bony thorax: No lytic or blastic lesions are identified. ABDOMEN AND PELVIS: Liver: The contrast-enhanced liver is normal in size, contour, and attenuation. There is no intrahepatic or ductal dilatation. The hepatic veins and portal veins are patent. Gallbladder: Unremarkable. Spleen: Normal in size and attenuation. Pancreas: Unremarkable. Adrenal glands: Unremarkable. 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 The contrast enhanced renal moieties are normal in size and without hydronephrosis. The renal moieties enhance symmetrically. A 4 mm nonobstructing calculus is seen on the right. Abdominal vasculature: The abdominal aorta is normal in course and caliber. Bowel: There is no bowel obstruction. The appendix is well-visualized and normal. Peritoneum: There is no intraperitoneal free air or abdominal ascites. Lymphadenopathy: None. Pelvic viscera: The bladder wall appears thickened. The prostate and seminal vesicles are normal as visualized. There is trace free fluid in the pelvis. Skeletal structures: No lytic or blastic lesions are seen. IMPRESSION: 1. There is no evidence of pulmonary embolus in the main, lobar, or segmental pulmonary arteries. 2. The lungs are clear. 3. Trace free fluid in the pelvis is a nonspecific but abnormal finding. This may be reactive. Correlate clinically. 4. The bladder wall appears thickened. Correlate with clinical findings and urinalysis. 5. 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 6. Right-sided nephrolithiasis. 7. Additional findings as above. ACT 112: Negative or not required by law. Electronically signed by: Oumar Howe M.D. 08/05/2023 7:[address] 08/05/23 17:[address] OF THE BRAIN; CT ANGIOGRAM OF THE BRAIN; CT ANGIOGRAM OF THE NECK CLINICAL HISTORY: Headache. Vomiting. Syncope. COMPARISON STUDY: No priors. TECHNIQUE: Unenhanced axial CT scan of the brain is performed. Subsequently, following the IV administration of 115 of Optiray 320, CT angiogram of the head and neck was performed from the aortic arch to the vertex. Images are reviewed in the axial, sagittal, and coronal planes. 3-D MIPS images are created and assessed. IV contrast was administered without complication. All measurements were calculated based on NASCET criteria. A dose lowering technique was utilized adhering to the principles of ALARA. CT DOSE: 3240.41 mGy.cm FINDINGS: Brain parenchyma: The brain parenchyma is normal in appearance. There is no hemorrhage, mass effect, or evidence of acute territorial ischemia by CT criteria. There is no evidence of enhancing mass lesion on the angiogram phase images. The ventricles, sulci, and cisterns are normal in configuration. Rebollar- white matter differentiation is preserved. No extra-axial fluid collection is seen. Thoracic aorta: Visualized portions of the thoracic aorta are normal in caliber. The aortic arch demonstrates standard 3-vessel anatomy. Right carotid arterial system: The right common carotid artery is widely patent, as are the right internal and external carotid arteries. Left carotid arterial system: The left common carotid artery is widely patent, as are the left internal and external carotid arteries. Vertebral arteries: The vertebral arteries are widely patent bilaterally and codominant. Subclavian arteries: Widely patent bilaterally. Intracranial vasculature: The internal carotid arteries are patent at the skull base, as are the anterior and middle cerebral arteries bilaterally. The vertebrobasilar system and posterior cerebral arteries are widely patent. The vertebral arteries are codominant. There is no aneurysm, high-grade stenosis, or focal vessel cut off seen throughout the intracranial circulation. Jugular veins: Patent bilaterally. Dural sinuses: Patent. Lung apices: Partially visualized upper lobe lung parenchyma appears clear. Soft tissues: The visualized pharyngeal soft tissues are normal in appearance noting angiographic phase technique. The oropharyngeal airway appears widely patent. The salivary and thyroid glands are normal in appearance. No cervical lymphadenopathy is seen. Skeletal structures: The calvarium appears intact. The cervical spine is within normal limits. Orbits: The bony orbits are intact. Orbital contents are normal as visualized. Sinuses and mastoids: There is a 2.7 cm retention cyst in the right maxillary antrum. The remaining paranasal sinuses are clear. The mastoid air cells are well pneumatized. IMPRESSION: 1. No acute intracranial abnormality. 2. Unremarkable CT angiogram of the brain. 3. Unremarkable CT angiogram of the neck. ACT 112: Negative or not required by law. Electronically signed by: Oumar Howe M.D. 08/05/2023 5:59 PM Head CTA 08/05/23 17:[address] OF THE BRAIN; CT ANGIOGRAM OF THE BRAIN; CT ANGIOGRAM OF THE NECK CLINICAL HISTORY: Headache. Vomiting. Syncope. COMPARISON STUDY: No priors. TECHNIQUE: Unenhanced axial CT scan of the brain is performed. Subsequently, following the IV administration of 115 of Optiray 320, CT angiogram of the head and neck was performed from the aortic arch to the vertex. Images are reviewed in the axial, sagittal, and coronal planes. 3-D MIPS images are created and assessed. IV contrast was administered without complication. All measurements were calculated based on NASCET criteria. A dose lowering technique was utilized adhering to the principles of ALARA. CT DOSE: 3240.41 mGy.cm FINDINGS: Brain parenchyma: The brain parenchyma is normal in appearance. There is no hemorrhage, mass effect, or evidence of acute territorial ischemia by CT criteria. There is no evidence of enhancing mass lesion on the angiogram phase images. The ventricles, sulci, and cisterns are normal in configuration. Rebollar- white matter differentiation is preserved. No extra-axial fluid collection is seen. Thoracic aorta: Visualized portions of the thoracic aorta are normal in caliber. The aortic arch demonstrates standard 3-vessel anatomy. Right carotid arterial system: The right common carotid artery is widely patent, as are the right internal and external carotid arteries. Left carotid arterial system: The left common carotid artery is widely patent, as are the left internal and external carotid arteries. Vertebral arteries: The vertebral arteries are widely patent bilaterally and codominant. Subclavian arteries: Widely patent bilaterally. Intracranial vasculature: The internal carotid arteries are patent at the skull base, as are the anterior and middle cerebral arteries bilaterally. The vertebrobasilar system and posterior cerebral arteries are widely patent. The vertebral arteries are codominant. There is no aneurysm, high-grade stenosis, or focal vessel cut off seen throughout the intracranial circulation. Jugular veins: Patent bilaterally. Dural sinuses: Patent. Lung apices: Partially visualized upper lobe lung parenchyma appears clear. Soft tissues: The visualized pharyngeal soft tissues are normal in appearance noting angiographic phase technique. The oropharyngeal airway appears widely patent. The salivary and thyroid glands are normal in appearance. No cervical lymphadenopathy is seen. Skeletal structures: The calvarium appears intact. The cervical spine is within normal limits. Orbits: The bony orbits are intact. Orbital contents are normal as visualized. Sinuses and mastoids: There is a 2.7 cm retention cyst in the right maxillary antrum. The remaining paranasal sinuses are clear. The mastoid air cells are well pneumatized. IMPRESSION: 1. No acute intracranial abnormality. 2. Unremarkable CT angiogram of the brain. 3. Unremarkable CT angiogram of the neck. ACT 112: Negative or not required by law. Electronically signed by: Oumar Howe M.D. 08/05/2023 5:59 PM Neck CTA 08/05/23 17:[address] OF THE BRAIN; CT ANGIOGRAM OF THE BRAIN; CT ANGIOGRAM OF THE NECK CLINICAL HISTORY: Headache. Vomiting. Syncope. COMPARISON STUDY: No priors. TECHNIQUE: Unenhanced axial CT scan of the brain is performed. Subsequently, following the IV administration of 115 of Optiray 320, CT angiogram of the head and neck was performed from the aortic arch to the vertex. Images are reviewed in the axial, sagittal, and coronal planes. 3-D MIPS images are created and assessed. IV contrast was administered without complication. All measurements were calculated based on NASCET criteria. A dose lowering technique was utilized adhering to the principles of ALARA. CT DOSE: 3240.41 mGy.cm FINDINGS: Brain parenchyma: The brain parenchyma is normal in appearance. There is no hemorrhage, mass effect, or evidence of acute territorial ischemia by CT criteria. There is no evidence of enhancing mass lesion on the angiogram phase images. The ventricles, sulci, and cisterns are normal in configuration. Rebollar- white matter differentiation is preserved. No extra-axial fluid collection is seen. Thoracic aorta: Visualized portions of the thoracic aorta are normal in caliber. The aortic arch demonstrates standard 3-vessel anatomy. Right carotid arterial system: The right common carotid artery is widely patent, as are the right internal and external carotid arteries. Left carotid arterial system: The left common carotid artery is widely patent, as are the left internal and external carotid arteries. Vertebral arteries: The vertebral arteries are widely patent bilaterally and codominant. Subclavian arteries: Widely patent bilaterally. Intracranial vasculature: The internal carotid arteries are patent at the skull base, as are the anterior and middle cerebral arteries bilaterally. The vertebrobasilar system and posterior cerebral arteries are widely patent. The vertebral arteries are codominant. There is no aneurysm, high-grade stenosis, or focal vessel cut off seen throughout the intracranial circulation. Jugular veins: Patent bilaterally. Dural sinuses: Patent. Lung apices: Partially visualized upper lobe lung parenchyma appears clear. Soft tissues: The visualized pharyngeal soft tissues are normal in appearance noting angiographic phase technique. The oropharyngeal airway appears widely patent. The salivary and thyroid glands are normal in appearance. No cervical lymphadenopathy is seen. Skeletal structures: The calvarium appears intact. The cervical spine is within normal limits. Orbits: The bony orbits are intact. Orbital contents are normal as visualized. Sinuses and mastoids: There is a 2.7 cm retention cyst in the right maxillary antrum. The remaining paranasal sinuses are clear. The mastoid air cells are well pneumatized. IMPRESSION: 1. No acute intracranial abnormality. 2. Unremarkable CT angiogram of the brain. 3. Unremarkable CT angiogram of the neck. ACT 112: Negative or not required by law. Electronically signed by: Ouamr Howe M.D. 08/05/2023 5:59 PM PG Care Time/CCT Total # of Minutes Spent Total Time Spent with Patient: Total time spent is greater than 50% in coordination of care (as documented) at patient's floor/unit and/or counseling patient: Coding Level of Care Code 33705 INT INP/OBS CARE 2/55MIN Diagnoses Syncope R55 Nausea vomiting and diarrhea R11.2; R19.7 Horseshoe kidney with renal calculus Q63.1; N20.0
[2023-08-06 00:28] LABS: Appearance Urine Clear (Clear); Bilirubin Urine Negative (Negative); Blood Urine Negative (Negative); Color Urine Yellow; Glucose Urine UA Negative (Negative); Ketones Urine 1+ (Negative); Leukocyte Esterase Urine Negative (Negative); Nitrite Urine Negative (Negative); Protein Urine Negative (Negative); Specific Gravity Urine > 1.045 (1.000-1.030); Urobilinogen Urine Negative (Negative)
[2023-08-06] MEDS ORDERED: ONDANSETRON INJ 2 MG/ML 2 ML VIAL IV PRN (01:01)
[2023-08-06] MEDS ORDERED: ACETAMINOPHEN 325 MG TAB PO PRN (01:01)
[2023-08-06] MEDS: LACTATED RINGER'S 1,000 ML IV SCH (01:45)
[2023-08-06 05:27] LABS: Albumin Level 3.5 gm/dl (3.4-5.0); BUN Creatinine Ratio 14.1 (10-20); Bilirubin Direct 0.1 mg/dl (0-0.2); Calcium 7.8 mg/dl (8.6-10.3); Est GFR (African American) 135.4 ml/min; Est GFR (Non-African American) 116.8 ml/min; Potassium 3.8 mmol/L (3.5-5.1); Total Protein 5.4 gm/dl (6.0-8.3)
[2023-08-06 05:57] LABS: Hematocrit (blood only) 34.3 % (42.0-52.0); Hemoglobin 11.9 g/dl (14.0-18.0); Mean Corpuscular Hemoglobin 28.6 pg (25.0-34.0); Mean Corpuscular Hgb Conc 34.7 g/dL (32.0-36.0); Mean Corpuscular Volume 82.5 fL (80.0-100.0); Mean Platelet Volume 10.1 fL (9.4-12.4); Platelet Count 156 K/uL (130-400); RDW Standard Deviation 36.3 fL (36.4-46.3); Red Blood Count 4.16 M/uL (4.70-6.10); White Blood Count 7.35 K/ul (4.8-10.8)
--- NOTE | 2023-08-06 14:54 | Discharge Summary ---
Discharge Summary Date of Service August 06, 2023 Notes For Next Care Provider Needs Urology follow up Medication Changes From Visit None Admission HPI Per Admitting Provider Edward Metzger is a 23yo male presenting with dizziness and syncope. Patient was in class this AM when he developed nausea and cramping across his low back. He then got a hot flash and passed out. He then developed abdominal cramping, nausea with 8-9 episodes of non-bloody/non-bilious emesis and 2 episodes of watery diarrhea. In the ER waiting room he had several episodes of syncope - he reports blurry vision and difficulty breathing - blood pressure measured in the 50's. He denies fever, chills, chest pain, cough or SOB. No urinary symptoms. Patient was recently in [place] and ate oysters. He also ate steak last night and reports that it possibly tasted a little off. Nobody else became ill. Patient reports feeling better overall. Still with mild lumbar pain. In the ER patient hypotensive - BP of 67/39 ER Course: NSS x 2L Plasmalyte x 2L Toradol 15mg IV Zofran 4mg IV Principal Dx & Hospital Course #1 = Principal Diagnosis (1) Syncope: 23yo male with acute onset nausea/vomiting/diarrhea and abdominal pain, hypotensive in the ER with multiple syncopal events. Suspect secondary to acute volume loss and hypotension from vomiting and diarrhea. Patient much improved after aggressive IVF resuscitation Admitted to medical with telemetry and had no significant events on tele. He did have a junctional rhythm in the ER on ECG which then quickly resolved Troponin negative CT head, CTA Head/neck all normal CTA Chest negative for PE BPs much improved and he was tolerating po, had no further back pain, no lightheadedness with ambulation (2) Nausea vomiting and diarrhea: Etiology unclear. Possibly food-borne illness vs passed kidney stone? CT A/P with horseshoe kidney and 4mm nonobstructing stone UA with high spec grav and 1+ ketones but no RBCs/blood Suspect possible passed kidney stone vs food borne illness or viral gastroen teritis Self limited and resolved ether way Received IVF as above and now much improved, tolerating po (3) Horseshoe kidney with renal calculus: Incidentally noted. Non-obstructing stone in the right, 4mm. Patient did have flank pain initially, improved now. UA suggests dehydration, no infection or blood as above Given horseshoe kidney and 4mm stone, recommend outpt f/u with Urology-referral given Should be monitored as outpt for HTN and proteinuria, CKD annually with PCP Plan Dispo-stable for dc to home, much improved Discharge Exam Constitutional WD/WN, vitals as above ENMT external ear and nose normal, oropharynx normal Neck trachea midline, no thyromegaly Respiratory normal respiratory effort, lungs clear to auscultation Cardiovascular RRR, no murmur, no edema Chest (Breasts) Chest: normal inspection of chest Gastrointestinal (Abdomen) normal bowel sounds, soft, nontender, no hepatosplenomegaly except mild CVA tenderness left/right Musculoskeletal Extremities: extremities normal to inspection; no cyanosis and no clubbing Skin no rashes, warm and dry Neurologic moves all extremities and awake; no focal motor deficits Psychiatric A+Ox3, euthymic affect Lymphatic no lymphedema Updated Medication List Medication Instructions Recorded Confirmed Type dexamethasone 0.5 mg/5 mL oral 0.25 mg PO DIRECTED PRN MOUTH 08/05/23 08/05/23 History [facility] Hospital Stay Data Consultations 08/05/23 21:17 ED Decision to Admit Stat Diagnostic Imagining Performed 08/05/23 17:08 CT abd pelvis IV con only Stat CT angio chest PE protocol Stat CT head/brain wo con Stat CTA head w con [CT angio head w con] Stat CTA neck with con [CT angio neck with con] Stat Pending Results Patient Have Any Pending Studies at Discharge: No Discharge Instructions Given to Patient (Per Discharging Provider) You were admitted with lower back pain and nausea/vomiting/diarrhea causing you to pass out from low blood pressure. This is now resolved and you were given IV fluids for hydration. You were found to have a horseshoe kidney with a nonobstructing kidney stone on the CT scan. Please follow up with a Urologist for further monitoring of this issue. You should stay well hydrated. Total Time Total Time Spent Total Time Spent (In Minutes): 35 min Total Time Includes: Examination of the Patient, Discharge Planning, Medication Reconciliation, Communication With Other Providers (Urology) and Other (mother at bedside) Coding Level of Care Code 78845 INP/OBS DISCH >30 MIN Diagnoses Syncope R55 Nausea vomiting and diarrhea R11.2; R19.7 Horseshoe kidney with renal calculus Q63.1; N20.0
--- NOTE | 2023-08-07 05:46 | Electrocardiogram Report ---
Test Reason : Blood Pressure : / mmHG Vent. Rate : 088 BPM Atrial Rate : 000 BPM P-R Int : 000 ms QRS Dur : 092 ms QT Int : 358 ms P-R-T Axes : 000 090 058 degrees QTc Int : 433 ms Accelerated Junctional rhythm Rightward axis Incomplete right bundle branch block Abnormal ECG No previous ECGs available Confirmed by Barrie Bowman ([id number]) on 08/07/2023 5:45:53 AM Referred By: REFERRED SELF Confirmed By:Barrie Bowman
--- NOTE | 2023-08-07 05:54 | Electrocardiogram Report ---
Test Reason : Blood Pressure : / mmHG Vent. Rate : 088 BPM Atrial Rate : 088 BPM P-R Int : 126 ms QRS Dur : 090 ms QT Int : 362 ms P-R-T Axes : 071 082 072 degrees QTc Int : 438 ms Normal sinus rhythm with sinus arrhythmia Normal ECG When compared with ECG of 05-AUG-2023 17:22, Sinus rhythm has replaced Junctional rhythm Confirmed by Barrie Bowman ([id number]) on 08/07/2023 5:53:56 AM Referred By: REFERRED SELF Confirmed By:Barrie Bowman
== END 2023-08-06 15:30 | disposition home or self-care (01) ==
LOC: ED 16:55 → EDINP 16:55 → SUATTDRO 23:58 → 2N 08-06 01:01